=== PATIENT | female | born 1960 | race Hispanic/Latino ===

== ENCOUNTER 2018-02-15 22:18 | Emergency (ER) | payer SELFPAY ==
[~2018-02-15] VITALS: Ht 157.5 cm; Wt 84.4 kg
--- OUTSIDE RECORDS SUMMARY | 2018-02-15 22:21 | XMS REPORT ---
Author Author [facility] Address Unknown Phone Unavailable Care Team Providers Care Learning Disabled Teacher Name Role Phone Unavailable Unavailable Problems This patient has no known problems. Allergies, Adverse Reactions, Alerts This patient has no known allergies or adverse reactions. Medications This patient has no known medications. Encounters Start Date/Time End Date/Time Encounter Type Admission Type Attending [facility] Facility Care Department Encounter ID 2017-07-12 08:51:37 2017-07-12 08:51:37 Outpatient [facility] [id number] 2017-07-12 00:00:00 2017-07-12 00:00:00 Outpatient [facility] [id number] 2017-07-05 11:11:36 2017-07-05 11:11:36 Outpatient [facility] [id number] 2017-07-04 00:00:00 2017-07-04 00:00:00 Outpatient [facility] [id number]
[2018-02-15] MEDS ORDERED: MORPHINE SULFATE 4 MG/ML SYR IM ONE (23:45)
[2018-02-16] MEDS ORDERED: TYLENOL WITH C1 EACH PO (00:09)
[2018-02-16 00:30] VITALS: BP 124/77
== END 2018-02-16 00:33 | disposition home or self-care (01) ==
LOC: FSED 22:18
CPT/HCPCS: 96372; 99283; J2270

== ENCOUNTER 2020-04-16 15:48 | Emergency (ER) | payer SELFPAY ==
[~2020-04-16] VITALS: Ht 160 cm; Wt 85.7 kg
[~2020-04-16 15:48] MED LIST: TYLENOL WITH C1 EACH PO
[2020-04-16] MEDS ORDERED: ACETAMINOPHEN 325 MG TAB PO ONE (16:00)
--- NOTE | 2020-04-16 16:42 | Diagnostic Imaging Report ---
EXAMINATION: CXR 1 VEW - HOPD INDICATION: Cough COMPARISON: None FINDINGS: LINES/TUBES:None LUNGS:The lungs are well-inflated. Mild hazy bibasilar opacities. PLEURA:No pleural effusion or pneumothorax. MEDIASTINUM:The cardiomediastinal silhouette appears normal in size and shape. BONES/SOFT TISSUES:No acute osseous injury. ABDOMEN:No free air under the diaphragm. IMPRESSION: Mild hazy bibasilar opacities. Early pneumonitis could have this appearance and should be excluded clinically. Signed by: Rita Engel MD on 04/16/2020 4:39 PM
[2020-04-16] MEDS ORDERED: CEFTRIAXONE SOD 1 GM VIAL IV ONE (17:30)
[2020-04-16] MEDS ORDERED: CEFTRIAXONE SOD 1 GM/NS 50 ML 50 ML IV ONE (17:45)
[2020-04-16] MEDS ORDERED: CEFTRIAXONE SOD 1 GM VIAL ONE (17:56)
--- OUTSIDE RECORDS SUMMARY | 2020-05-15 04:51 | XMS REPORT | Continuity of Care Document ---
Author Author [facility] t Organization [facility] Address [address] [place] [id number] Phone Unavailable Care Team Providers Care Survey Worker Name Role Phone NO, PCP PCP Unavailable AARON GALVEZ Unavailable Problems Condition Name Condition Details Condition Category Status Onset Date Resolution Date Last Treatment Date Treating Clinician Comments Source Prediabetes Prediabetes Disease Active 2016-12-28 00:00:00 [facility] Allergic sinusitis Allergic sinusitis Disease Active 2016-12-28 00:00:0 0 [facility] Chronic GERD Chronic GERD Disease Active 2016-08-02 00:00:00 [facility] Back muscle spasm Back muscle spasm Disease Active 2016-08-02 00:00:00 [facility] Epigastric discomfort Epigastric discomfort Disease Active 201 03-18-21 00:00:00 [facility] H. pylori infection H. pylori infection Disease Active 2014-08-15 00:00 :00 [facility] Hypovitaminosis D Hypovitaminosis D Disease Active 2014-08-15 00:00:00 [facility] Anxiety Anxiety Disease Active 2014-08-15 00:00:00 [facility] Insomnia, unspecified Insomnia, unspecified Disease Active 201 01-23-31 00:00:00 [facility] Problem Condition Active [facility] SIRS (systemic inflammatory response syndrome) SIRS (s ystemic inflammatory response syndrome) Disease Active [facility] Acute pyelonephritis Acute pyelonephritis Disease Active [facility] Allergies, Adverse Reactions, Alerts This patient has no known allergies or adverse reactions. Family History Family Member Diagnosis Comments Start Date Stop Date Source Natural mother Hypertension [facility] ealth unknown Heart [facility] Social History Social Habit Start Date Stop Date Quantity Comments Source Sex Assigned At [facility] Alcohol intake 2019-03-20 00:00:00 2019-03-20 00:00:00 Current non-drinker of alcohol (finding) [facility] History SDOH Food Worry 2018-08-10 00:00:00 2018-08-10 00:00:00 1 [facility] History SDOH Food Scarcity 2018-08-10 00:00:00 2018-08-10 00:00:00 1 [facility] Smoking Status Start Date Stop Date Source Never smoker [facility] Medications Ordered Medication Name Filled Medication Name Start Date Stop Da te Current Medication? Ordering Clinician Indication Dosage Frequency Signature (SIG) Comments Components Source sertraline (ZOLOFT) 25 mg tablet 2019-01-18 00:00:00 Yes Anxiety 25mg QD Take 1 tablet by mouth daily. [facility] omeprazole (PRILOSEC) 20 mg delayed release capsule 01-18 00:00:00 Yes Gastroesophageal reflux disease, esophagitis presence not specif ied 20mg QD Take 1 capsule by mouth daily. [facility] alth benzonatate (TESSALON PERLES) 100 mg capsule 2018-08-20 00:0 0:00 Yes Cough Take one to two capsules three times a day as n eeded for cough. [facility] ciclesonide (ZETONNA) 37 mcg/actuation nasal HFA inhaler 2018-08-20 00:00:00 Yes Bacterial sinusitis 1{spray} QD Use 1 [place] in each nostril daily. [facility] fluticasone-salmeterol (ADVAIR DISKUS) 100-50 mcg/dose disku s inhaler 2018-04-30 00:00:00 Yes Moderate per sistent asthma with (acute) exacerbation Inhale 1 puff by fernanda th 2 times dailyTherapeutic substitution for symbicort per P&T [facility] albuterol 90 mcg/actuation inhaler 2018-04-30 00:00:00 Yes Moderate persistent asthma with (acute) exacerbation 2{puff} Inhale 2 Puffs by mouth 4 times daily as needed for Wheezing. [facility] Acetaminophen With Codeine (Tylenol With Codeine #3 Ta blet) 1 Each TABLET Acetaminophen With Codeine (Tylenol With Codeine #3 Tablet) 1 Each TABLET 2018-02-16 00:09:00 Yes 300 Every 4 Hours as n eeded for Pain [facility] hydrOXYzine (ATARAX) 25 mg tablet 2017-07-12 00:00:00 Yes Anxiety 25mg Take 1 tablet by mouth at bedtime nightly. [facility] loratadine (CLARITIN) 10 mg tablet 2016-12-28 00:00:00 Yes Allergic sinusitis 10mg QD Take 1 tablet by mouth daily. [facility] Immunizations Ordered Immunization Name Filled Immunization Name Date Status Comments Source PNEUMOCOCCAL 23-VALPS VACCINE 25 MCG/0.5 ML INJECTION 2016-11-30 00:00:00 Completed [facility] Influenza Vaccine 2016-08-02 00:00:00 Completed [facility] Influenza Vaccine 2015-10-30 00:00:00 Completed [facility] Tdap Tetanus, diphtheria, acellular pertussis Vaccine 2014-09-10 00:00:00 Completed [facility] Influenza Vaccine 2014-08-15 00:00:00 Completed [facility] Vital Signs Vital Name Observation Time Observation Value Comments Source Weight 2020-04-16 15:50:00 189 [lb_av] [facility] BMI (Body Mass Index) 2020-04-16 15:50:00 33.5 kg/m2 [facility] Procedures This patient has no known procedures. Plan of Care Planned Activity Planned Date Details Comments Source [facility] Scheduled Test 2024-08-14 00:00:00 Screening for yao gnant neoplasm of colon (procedure) [code = 690788379] [facility] Scheduled Test 2020-02-10 00:00:00 Screening for yao gnant neoplasm of cervix (procedure) [code = 537274896] [facility] Scheduled Test 2019-05-11 00:00:00 Breast Cancer Scrn (Yearly) [code = Breast Cancer Scrn (Yearly)] [facility] Instructions Back Pain [facility] Instructions Pneumonia - Bacterial [facility] Encounters Start Date/Time End Date/Time Encounter Type Admission Type [facility] Care Department Encounter ID Source 2020-04-16 15:48:00 2020-04-16 18:33:00 Departed Emergency Room 1 AARON GALVEZ [facility] [id number] [facility] 2019-01-18 14:20:37 2019-01-18 14:20:37 Outpatient [facility] [id number] [facility] 2019-01-18 13:21:37 2019-01-18 13:21:37 Outpatient [facility] [id number] [facility] 2019-01-18 00:00:00 2019-01-18 00:00:00 Outpatient [facility] [id number] [facility] 2018-08-20 14:45:05 2018-08-20 14:45:05 Outpatient [facility] [id number] [facility] 2018-08-13 00:00:00 2018-08-13 00:00:00 Outpatient [facility] [id number] [facility] 2018-08-10 08:40:25 2018-08-10 08:40:25 Outpatient [facility] [id number] [facility] 2018-05-16 00:00:00 2018-05-16 00:00:00 Outpatient [facility] [id number] [facility] 2018-05-11 08:58:10 2018-05-11 08:58:10 Outpatient [facility] [id number] [facility] 2018-04-30 12:20:43 2018-04-30 12:20:43 Outpatient [facility] [id number] [facility] 2018-04-30 10:36:30 2018-04-30 10:36:30 Outpatient [facility] [id number] [facility] 2018-02-15 22:18:00 2018-02-16 00:33:00 Departed Emergency Room [facility] [id number] [facility] 2017-07-12 08:51:37 2017-07-12 08:51:37 Outpatient [facility] [id number] [facility] 2017-07-12 00:00:00 2017-07-12 00:00:00 Outpatient [facility] [id number] [facility] 2017-07-05 11:11:36 2017-07-05 11:11:36 Outpatient [facility] [id number] [facility] 2017-07-04 00:00:00 2017-07-04 00:00:00 Outpatient [facility] [id number] [facility] Results Test Description Test Time Test Comments Results Result Comments Source CXR 1 VEW - HOPD 2020-04-16 16:38:00 [facility] [address] [place] [address] Patient Name: JACQUIE MAC MR #: [id number] : 1960 Age/Sex: 59/F Req #: [id number] [facility] Physician: Ordered by: AARON GALVEZ MD Report #: [id number] Location: [facility] Room/Bed: Procedure: [id number] HOPD/CXR 1 VEW - HOPD Exam Date: 04/16/20 Exam Time: 1629 REPORT STATUS: Signed EXAMINATION: CXR 1 VEW - HOPD INDICATION: Cough COMPARISON: None FINDINGS: LINES/TUBES:None LUNGS:The lungs are well-inflated. Mild hazy bibasilar opacities. PLEURA:No pleural effusion or pneumothorax. MEDIASTINUM:The cardiomediastinal silhouette appears normal in size and shape. BONES/SOFT TISSUES:No acute osseous injury. ABDOMEN:No free air under the diaphragm. IMPRESSION: Mild hazy bibasilar opacities. Early pneumonitis could have this appearance and should be excluded clinically. Signed by: Do Owens MD on 04/16/2020 4:39 PM Dictated By: DO OWENS MD [id number] Transcribed By: BRYAN on 04/16/20 [id number] COPY TO: AARON GALVEZ MD
--- OUTSIDE RECORDS SUMMARY | 2020-05-15 04:51 | XMS REPORT | Clinical Summary ---
Author Author [facility] Organization [facility] Address Unknown Phone Unavailable Care Team Providers Care Print Finishing Worker Name Role Phone Elin Virk MD PCP Allergies No Known Allergies Medications End Date Status Medication Sig Dispensed Refills Start Date Active loratadine (CLARITIN) 10 Take 1 tablet 30 tablet 3 mg tabletIndications: by mouth 7 Chest congestion, daily. Allergic sinusitis Active hydrOXYzine (ATARAX) 25 Take 1 tablet 180 tablet 1 mg tabletIndications: by mouth at 7 Anxiety bedtime nightly. Active fluticasone-salmeterol Inhale 1 puff 180 Each 3 0 (ADVAIR DISKUS) 100-50 by mouth 2 8 mcg/dose diskus times daily inhalerIndications: Therapeutic Moderate persistent substitution asthma with (acute) for symbicort exacerbation per P&T Active albuterol 90 Inhale 2 20.1 g 3 mcg/actuation Puffs by 8 inhalerIndications: mouth 4 times Moderate persistent daily as asthma with (acute) needed for exacerbation Wheezing. Active benzonatate (TESSALON Take one to 30 capsule 0 11/ PERLES) 100 mg two capsules 8 capsuleIndications: Cough three times a day as needed for cough. Active ciclesonide (ZETONNA) 37 Use 1 [place] 6.1 g 0 1 mcg/actuation nasal HFA in each 8 inhalerIndications: nostril Bacterial sinusitis daily. Active sertraline (ZOLOFT) 25 mg Take 1 tablet 180 tablet 3 tabletIndications: by mouth 9 Anxiety daily. Active omeprazole (PRILOSEC) 20 Take 1 90 capsule 3 0 mg delayed release capsule by 9 capsuleIndications: mouth daily. Gastroesophageal reflux disease, esophagitis presence not specified Active Problems Problem Noted Date Prediabetes 12/28/2016 Allergic sinusitis 12/28/2016 Chronic GERD 08/02/2016 Back muscle spasm 08/02/2016 Epigastric discomfort 01/04/2016 H. pylori infection 08/15/2014 Hypovitaminosis D 08/15/2014 Anxiety 08/15/2014 Insomnia, unspecified 08/15/2014 Pyelonephritis, acute SIRS (systemic inflammatory response sy ndrome) Acute pyelonephritis Immunizations Name Administration Dates Next Due Influenza Vaccine 08/20/2018 (Deferred: Other ), 08/02/2016, 10/30/2015, 08/15/2014 PNEUMOCOCCAL 23-VALPS 11/30/2016 VACCINE 25 MCG/0.5 ML INJECTION Tdap Tetanus, diphtheria, 09/10/2014 acellular pertussis Vaccine Family History Medical History Relation Name Comments Hypertension Mother Heart dad side of the family Relation Name Status Comments Brother Alive Father Mother Alive Sister Alive Sister Alive Sister Alive Sister Alive Sister Alive Social History Date Tobacco Use Types Packs/Day Years Used Never Smoker Smokeless Tobacco: Never Used Tobacco Cessation: Counseling Given: No Drinks/Week oz/Week Comments Alcohol Use 0 Standard drinks or equivalent 0.0 No Food Insecurity Answer Date Recorded Within the past 12 months, you worried that your Never richie e 08/10/2018 food would run out before you got money to buy more. Within the past 12 months, the food you bought Never true 08/10/2018 just didn't last and you didn't have mo rula to get more. Sex Assigned at Date Recorded Not on file Industry Job Start Date Occupation Not on file Not on file Not on file Travel End Travel History Travel Start No recent travel history available. Last Filed Vital Signs Not on file Plan of Treatment Health Maintenance Due Date Last Done Comments Breast Cancer Scrn 05/11/2019 05/11/2018, (Yearly) 12/14/2016, 12/08/2015, Additional history exists Cervical Cancer Scrn (3 02/10/2020 02/09/2017, Yrs) 04/08/2014 Colonoscopy 10yr 08/14/2024 08/14/2014 Goals Goal Patient Associated Recent Progress Patient-Stat Aut hor Goal Type Problems ed? Reduce pain Lifestyle No Cindy Crystal LVN Reduce pain Lifestyle No Cindy Crystal LVN Results Not on fileafter 04/16/2019 Advance Directives Date Inactivated Comments Code Status Date Activated 09/24/2015 1:33 PM Full Code 09/22/2015 9:28 AM
--- NOTE | 2020-07-08 15:02 | Emergency Department Note ---
History of Present Illnes History of Present Illness Chief Complaint: Back Pain History of Present Illness This is a 59 year old female BACK PAIN AND COUGH. Historian: Patient, Family Member Arrival Mode: Car Onset (how long ago): day(s) (2) Location: BACK PAIN Quality: DULL Radiation: Denies non-radiation, Denies back, Denies neck, Denies extremity, Denies abdomen, Denies periumbilical, Denies flank, Denies proximal, Denies d istal, Denies other Severity: moderate Onset quality: gradual Duration (how long): day(s) (2) Timing of current episode: intermittent Progression: waxing and waning Context: Denies recent illness, Denies recent surgery, Denies recent immobilization, Denies recent travel, Denies trauma/injury, Denies new medications, Denies hx of DVT/PE, Denies non-compliance w/ medications, Denies other Relieving factors: none Exacerbating factors: none Associated symptoms: Denies denies other symptoms, Denies confusion, Denies chest pain, Denies cough, Denies diaphoresis, Denies fever/chills, Denies headaches, Denies loss of appetite, Denies malaise, Denies nausea/vomiting, Denies rash, Denies seizure, Denies shortness of breath, Denies syncope, Denies weakness, Denies other Treatments prior to arrival: none Past Medical/Family History Physician Review I have reviewed the patient's past medical and family history. Any updates have been documented here. Past Medical History Recent Fever: Yes Clinical Suspicion of Infectio: Yes New/Unexplained Change in Ment: No Past Medical History: Diabetes, Asthma Other Surgery: LUMP REMOVED FROM BREAST YEARS AGO PER FAMILY Social History Smoking Cessation: Never Smoker Counseling Performed: No Any Illegal Drug Use: No Physically hurt or threatened: No Other Any Pre-Existing Lines (PICC,: No Review of Systems Review of Systems Constitutional: Reports no symptoms EENTM: Reports no symptoms Cardiovascular: Reports no symptoms Respiratory: Reports as per HPI Gastrointestinal: Reports no symptoms Genitourinary: Reports no symptoms Musculoskeletal: Reports no symptoms Integumentary: Reports no symptoms Neurological: Reports no symptoms Psychological: Reports no symptoms Endocrine: Reports no symptoms Hematological/Lymphatic: Reports no symptoms Physical Exam Related Data Allergies: Coded Allergies: No Known Allergies (Unverified , 02/15/18) Vital signs reviewed: Yes Physical Exam CONSTITUTIONAL Constitutional: Present well-developed, Present well-nourished HENT HENT: Present normocephalic, Present atraumatic, Present oropharynx clear/moist, Present nose normal HENT L/R: Present left ext ear normal, Present right ext ear normal EYES Eyes: Reports PERRL, Reports conjunctivae normal NECK Neck: Present ROM normal PULMONARY Pulmonary: Present effort normal, Present rhonchi CARDIOVASCULAR Cardiovascular: Present regular rhythm, Present heart sounds normal, Present capillary refill normal, Present normal rate GASTROINTESTINAL Abdominal: Present soft, Present nontender, Present bowel sounds normal GENITOURINARY Genitourinary: Present exam deferred SKIN Skin: Present warm, Present dry MUSCULOSKELETAL Musculoskeletal: Present ROM normal, Present tenderness (BACK) NEUROLOGICAL Neurological: Present alert, Present oriented x 3, Present no gross motor or sensory deficits PSYCHOLOGICAL Psychological: Present mood/affect normal, Present judgement normal Results Laboratory Lab results reviewed: Yes Imaging Imaging results reviewed: Yes Assessment & Plan Medical Decision Making MDM MUSCULOSKELETAL PNEUMONIA Assessment & Plan Final Impression: (1) Pneumonia (2) Back pain Depart Disposition: HOME, SELF-intermediate Meds Active Scripts Acetaminophen With Codeine (TYLENOL WITH CODEINE #3 TABLET) 1 Each Tablet, 300 MG PO Q4H PRN for PAIN, #20 TAB 0 Refills Prov:DENISE TORO MD 02/16/18 AARON GALVEZ MD Jul 08, 2020 15:02
== END 2020-04-16 18:33 | disposition home or self-care (01) ==
LOC: FSED 15:48
DX: J18.9 Pneumonia, unspecified organism (principal); R05 Cough; M54.9 Dorsalgia, unspecified; E11.9 Type 2 diabetes mellitus without complications; J45.909 Unspecified asthma, uncomplicated
CPT/HCPCS: 71045; 80053; 81003; 85025; 87040; 87071; 87205; 96374; 99284; J0696